=== PATIENT | female | born 1960 | race Asian ===

== ENCOUNTER → 2016-11-11 | Emergency (ER) | payer OTHER ==
[~2016-11-11] MED LIST: EPINEPHrine 1:1,000 1 MG/1 ML - 30ML VIAL (INJECTION) SQ ONE; EPINEPHrine/PF 1 MG/1 ML (1:1,000) AMPULE ONE; EPINEPHrine/PF 1 MG/1 ML (1:1,000) AMPULE SQ ONE; RANITIDINE HCL 150 MG TABLET (FP) ONE; RANITIDINE HCL 150 MG TABLET (FP) PO ONE; methylPREDNISolone NA SUCC 125 MG/2 ML VIAL IVPB ONE; methylPREDNISolone NA SUCC 125 MG/2 ML VIAL ONE
[2016-11-11 16:01] VITALS: BMI 27.1
--- NOTE | 2016-11-11 16:50 | PDOC ---
History of Present Illness - General Chief Complaint: Allergic Reaction Stated Complaint: ALLERGIC RXN Time Seen by Provider: 11/11/16 16:48 History Source: Patient Exam Limitations: No Limitations - History of Present Illness Initial Comments: 11/11/16 18:08 This is a 56-year-old female with a history of hypothyroidism presented to emergency department due to ALLERGIC reaction. Patient states she was in her usual state of health, returned from work at 3:30 PM and ate peanut butter. She then went to [facility] upon returning home she complained to her daughter that her throat felt tight, her mouth felt itchy, her eyes felt itchy. Patient states she has had this feeling before related to soy milk, but this was several years ago. Patient states that her daughter gave her Benadryl with minimal improvement of her symptoms. Patient then requested to be brought to the emergency department. She describes her current throat pain as feeling like she has cuts in her throat PMH: Hypothyroidism PSH: denies Meds: ALL: Soy Social: GENERAL/CONSTITUTIONAL: No: fever, chills, weakness, loss of appetite. HEAD, EYES, EARS, NOSE AND THROAT: Yes: throat tightness No: change in vision, ear pain, discharge, sore throat, throat swelling. CARDIOVASCULAR: No: chest pain, lightheadedness, palpitations, syncope RESPIRATORY: No: cough, shortness of breath, wheezing, hemoptysis, stridor. GASTROINTESTINAL: No: nausea, vomiting, diarrhea, abdominal cramping, rectal bleeding, constipation. GENITOURINARY: No: dysuria, hematuria, frequency, urgency, flank pain. MUSCULOSKELETAL: No: back pain, neck pain, joint pain, muscle swelling or pain SKIN AND BREASTS: No: lesions, pallor, rash or easy bruising. NEUROLOGIC: No: headache, vertigo, paresthesias, weakness ENDOCRINE: No: unexplained weight gain or loss HEMATOLOGIC/LYMPHATIC: No: anemia, easy bleeding, swelling nodes. GENERAL: The patient is in no acute distress. HEAD: Normal with no signs of trauma. EYES: PERRLA, EOMI, sclera anicteric, conjunctiva clear. ENT: Ears normal, nares patent, oropharynx clear without exudates. Moist mucous membranes. NECK: Normal range of motion, supple without lymphadenopathy, JVD, or masses. LUNGS: Breath sounds equal, clear to auscultation bilaterally. No wheezes, and no crackles. HEART:Regular rate and rhythm, normal S1 and S2 without murmur, rub or gallop. ABDOMEN: Soft, nontender, normoactive bowel sounds. No guarding, no rebound. No masses palpable. EXTREMITIES: Normal range of motion, no edema. No clubbing or cyanosis. No erythema, or tenderness. NEUROLOGICAL: Cranial nerves II through XII grossly intact. Normal speech. No focal neurological deficits. MUSCULOSKELETAL: Back non-tender to palpation, no CVA tenderness SKIN: Warm, Dry, normal turgor, no rashes or lesions noted. Past History - Past Medical History Allergies/Adverse Reactions: Allergies Allergy/AdvReac Type Severity Reaction Status Date / Time soy Allergy Difficulty Verified 11/11/16 16:02 Breathing Home Medications: Ambulatory Orders Epinephrine (Epi-Pen 0.3MG) [Epipen 0.3MG -] 0.3 mg IM ASDIR #2 pens 11/11/16 Levothyroxine [Synthroid -] 50 mcg PO DAILY 11/11/16 Prednisone [Deltasone -] 60 mg PO DAILY #12 tablet 11/11/16 Ranitidine HCl [Zantac] 150 mg PO DAILY #5 tablet 11/11/16 Thyroid Disease: Yes - Psycho/Social/Smoking Cessation Hx Anxiety: No Suicidal Ideation: No Smoking History: Never smoked Hx Alcohol Use: No Drug/Substance Use Hx: No Substance Use Type: None *Physical Exam - Vital Signs Last Vital Signs Temp Pulse Resp BP Pulse Ox 98.0 F 83 20 135/87 99 11/11/16 15:58 11/11/16 15:58 11/11/16 15:58 11/11/16 15:58 11/11/16 15:58 Medical Decision Making - Medical Decision Making Allergic reaction Will give Solumedrol Will give Zantac Will continuously monitor 11/11/16 18:59 Upon re assessment, pt states that her symptoms have improved throat improved No stridor No wheezing 11/11/16 23:14 Pt states she feels better No throat tightness No uvula edema No wheezing Will discharge to home Follow up with PMD Return to the ER for any other concerns or complaints *DC/Admit/Observation/Transfer Diagnosis at time of Disposition: Allergic reaction Qualifiers: Encounter type: initial encounter Qualified Code(s): T78.40XA - Allergy, unspecified, initial encounter - Discharge Dispostion Disposition: HOME Condition at time of disposition: Stable Admit: No - Prescriptions Prescriptions: Prednisone [Deltasone -] 60 mg PO DAILY #12 tablet Epinephrine (Epi-Pen 0.3MG) [Epipen 0.3MG -] 0.3 mg IM ASDIR #2 pens Ranitidine HCl [Zantac] 150 mg PO DAILY #5 tablet - Referrals Referrals: Tanner Burgess MD [Staff Physician] - Nikko Regan MD [Staff Physician] - - Patient Instructions Printed Discharge Instructions: DI for General Allergic Reactions Additional Instructions: Ms. Hedrick Thank you for coming in to the ER today Please AVOID PEANUTS IN ADDITION TO SOY CONTAINING PRODUCTS Please continue taking prednisone, benadryl, ranitidine for your allergic reaction you MUST RETURN TO THE ER IF you notice any throat tightness, oral tingling, shortness of breath, wheezing Please follow up with your primary care physician AND an [facility] for re- evaluation within 1 week You may benefit from allergy testing to determine the things you are allergic to Please also see Dr Regan for the lump on your head Even though it has been there a while, it is best to have it evaluated by your primary doctor - Post Discharge Activity Work/School Note: Back to Work
[2016-11-11 23:33] VITALS: BP 105/68; PULSE 74; TEMP 97.6
== END | disposition home or self-care (01) ==
LOC: JER 15:54
PROC: 3E0333Z Introduction of Anti-inflammatory into Peripheral Vein, Percutaneous Approach (ICD-10-PCS; principal; 2016-11-11)
PROC: 3E023GC Introduction of Other Therapeutic Substance into Muscle, Percutaneous Approach (ICD-10-PCS; 2016-11-11)
DX: T78.1XXA Other adverse food reactions, not elsewhere classified, initial encounter (principal); R07.0 Pain in throat; X58.XXXA Exposure to other specified factors, initial encounter
CPT/HCPCS: 99283-25